=== PATIENT | male | born 1970 | race Caucasian/White ===

== ENCOUNTER 2023-08-25 10:04 | Emergency (ER) | payer OTHER, SELFPAY ==
[2023-08-25 10:06] VITALS: BP 180/95
--- NOTE | 2023-08-25 11:02 | ED.MUSCINJ ---
HPI-Injury
General
Chief Complaint: Musculo-Skeletal Complaint
Source: patient
Exam Limitations: none
Time Seen by Provider: 08/25/23 10:40
Travel History
Have you had any contact with someone who has COVID-19?: No
Do you have any symptoms of coronavirus? Fever > 100 degrees, chills, cough, shortness of breath, sore throat, loss of taste or smell, muscle aches, or headache?: No
History of Present Illness-Injury
Initial Injury comments:
53-year-old male presents with atraumatic pain to the left thigh starting last night upon standing from the couch. No chest pain or shortness of breath. History of Left hip replacement 8 months ago. No fever. No other complaints at this time.
Past History
Past History
ED Past Medical History: Hypercholesterolemia
ED Past Surgical History: Tonsilectomy
Social History
Tobacco: Non-smoker
Alcohol: Occasional
Personal:
Living: with family
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
Family History
Family History: CAD
Phy Exam
Physical Exam
Physical Exam:
General: Well-appearing male no acute respiratory distress
HEENT: Normocephalic atraumatic
Heart: Regular rate and rhythm no murmurs lungs: Clear to auscultation bilaterally no wheezing
musculoskeletal exam: Left thigh not reproducibly tender. No deformity. Good range of motion.
Extremities: No cyanosis or edema vascular: 2+ dorsalis pedis pulse left foot
Injury Course
Orders/Labs/Results
Orders:
Orders
08/25/23 11:02
Venous Doppler Lwr Ext Left [US Periph Venous LOWER Ext LT] Urgent
Comment:
Reason For Exam: pain
08/25/23 12:02
Asenapine Sublingual [Saphris] 10 mg SL NOW STA
MDM/Problems Addressed
Differential Diagnosis Includes:
Atraumatic left thigh pain. Will order ultrasound to evaluate for DVT. No signs of cellulitis. Question also muscular strain
*Critical Care Note
Total Time (30-74mins, 75-104mins- exclusive of procedures): Not Applicable
Update Note
Update Note:
Ultrasound negative for DVT. Reassured patient. Suspect possible muscular strain. Recommended ibuprofen if needed for pain stable for discharge with follow-up
ED Attending Note
-
Portions of this chart may have been created with voice recognition software.� Occasional wrong word or��sound alike� substitutions may have occurred due to the inherent limitations of voice recognition software.
Discharge Plan
Departure
Patient Disposition: Home (Routine Discharge)
Date of Disposition: 08/25/23
Time of Disposition: 13:00
Patient with high blood pressure during this ER visit?: No
Discharge Problem:
Leg pain
Instructions: Muscle Strain (DC)
Prescriptions:
No Action
docosahexaenoic acid-epa 1 CAP capsule
4 cap PO DAILY
levofloxacin 500 MG tablet
500 mg PO DAILY 7 Days 0RF
oxycodone-acetaminophen 5 MG/325 MG tablet
1 tab PO Q4HPRN PRN (Reason: pain) Qty: 12 0RF
Referrals:
Lorin Pozo MD [Family Provider] -
Activity Restrictions/Additional Instructions:
Rest. Use ibuprofen if needed for pain. Return for worsening symptoms otherwise follow-up with family doctor
Interventions
Interventions:
*Risk Screen - Suicide Last Done: 08/25/23 10:35
*General Assessment Last Done: 08/25/23 10:35
*Neglect/Abuse Screening Last Done: 08/25/23 10:35
*ED COVID-19 Vaccine History Last Done: 08/25/23 10:35
ED-Musculoskeletal Assessment Last Done: 08/25/23 10:35
[2023-08-25 12:23] VITALS: BP 130/81
== END 2023-08-25 13:05 | disposition home or self-care (01) ==
LOC: EMR 10:04
PROVIDERS: EMERGENCY PHYSICIAN Emergency Medicine; FAMILY PHYSICIAN Family Medicine
DX: M79.652 Pain in left thigh (principal); E78.00 Pure hypercholesterolemia, unspecified; Z82.49 Family history of ischemic heart disease and other diseases of the circulatory system; Z96.642 Presence of left artificial hip joint
CPT/HCPCS: 99284; 93971

== ENCOUNTER 2024-04-04 08:40 | Emergency (ER) | payer OTHER, SELFPAY ==
[2024-04-04 08:42] VITALS: BP 164/96
[2024-04-04 08:57] LABS: % Basophils 0.5 % (0-2); % Eosinophils 1.4 % (0-6); % Immature Granulocytes 0.6 % (0-0.5); % Lymphocytes 21.5 % (20.5-51.1); % Monocytes 8.4 % (1.7-9.3); % Neutrophils 67.6 % (42.2-75.2); Absolute Eosinophils 0.1 10^3/uL (0-0.7); Absolute Immature Granulocytes 0.1 10^3/uL (0-0.05); Absolute Lymphocytes 1.8 10^3/uL (1.2-3.4); Absolute Monocytes 0.7 10^3/uL (0.1-0.6); Absolute Neutrophils 5.6 10^3/uL (1.4-6.5); Hematocrit 40.8 % (39.0-52.0); Hemoglobin 13.7 g/dL (13.0-18.0); Mean Corp Hgb Conc. 33.6 g/dL (33.0-37.0); Mean Corpuscular Hgb 30.9 pg (27.0-31.0); Mean Corpuscular Volume 92.1 fL (80.0-94.0); Mean Platelet Volume 9.2 fL (7.4-10.4); Nucleated Red Blood Cells % 0 % (-); Platelet Count 299 10^3/uL (130-400); Red Blood Cell Count 4.43 10^6/uL (4.70-6.10); Red Cell Dist. Width 13.9 % (11.5-14.5); White Blood Cell Count 8.3 10^3/uL (4.8-10.8)
[2024-04-04 09:09] LABS: ALT (SGPT) 31 U/L (0-50); AST (SGOT) 27 U/L (17-59); Alkaline Phosphatase 87 U/L (38-126); Blood Urea Nitrogen 24 mg/dl (9-20); Calcium 9.9 mg/dl (8.4-10.2); Carbon Dioxide 28 mmol/L (22-30); Chloride 101 mmol/L (98-107); Glucose 140 mg/dl (70-99); Potassium 4.6 mmol/L (3.5-5.1); Sodium 141 mmol/L (135-145); Total Bilirubin 0.7 mg/dl (0.2-1.3); Total Protein 7.4 g/dl (6.3-8.2); eGFR > 60.00
[2024-04-04 09:27] VITALS: BMI 36.2
[2024-04-04] MEDS: NSS 1000 IV (09:28)
--- NOTE | 2024-04-04 09:36 | ED.GENMED ---
History of Present Illness
General
Chief Complaint: Dizziness
Source: patient
Time Seen by Provider: 04/04/24 09:09
History of Present Illness
History of Present Illness:
53-year-old male presents to the emergency room complaining of 1 weeks of having a sensation of dizziness. Patient feels the symptoms with changes of position primarily. He does not describe this as a dramatic sense of spinning but rather a weird
sense of movement associate with some fullness right side of his head. No nausea, vomiting, diarrhea. No focal weakness numbness or tingling. Patient does not have a headache per se. No recent illness. He has been experiencing some tenderness
particular on the right.
Past History
Past History
ED Past Medical History: Hypercholesterolemia
ED Past Surgical History: Tonsilectomy
Social History
Tobacco: Non-smoker
Alcohol: Occasional
Personal:
Living: with family
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
Family History
Family History: CAD
Phy Exam
Physical Exam
Physical Exam:
General: Awake, Alert, Oriented X3. No acute distress.
Vitals: unremarkable
Head: Atraumatic
Eyes: Pupils equal, EOMI, no nystagmus
Throat: Airway intact, no exudates
Neck: Trachea midline
Lungs: Clear and equal b/l
Heart: Regular rate, no murmurs
Abd: Soft, Nontender, No pulsatile mass
Neuro: Cranial nerves intact, muscle strength equal bilaterally, cerebellar exam normal. Patient can ambulate without difficulty
Skin: Warm, dry, no rash
Extremities: pulses equal b/l, no edema
Course
Orders/Labs/Results
Orders:
Orders
04/04/24 08:46
Electrocardiogram (*1) Urgent
Reason for Study: Vertigo / Dizzy
EKG- Treatment ONCE
04/04/24 08:49
Complete Blood Count/With Diff Urgent
Comprehensive Metabolic Panel Urgent
04/04/24 09:20
0.9% Sodium Chloride 1000 ml [Nss] 1,000 ml IV BOLUS
04/04/24 11:45
Meclizine [Antivert] 25 mg PO NOW STA
Abnormal Lab Results
04/04/24
08:49
RBC 4.43 L 10^6/uL
(4.70-6.10)
Abs Immat Gran (auto) 0.1 H 10^3/uL
(0-0.05)
Absolute Monos (auto) 0.7 H 10^3/uL
(0.1-0.6)
Immature Gran % 0.6 H %
(0-0.5)
BUN 24 H mg/dl
(9-20)
Glucose 140 H mg/dl
(70-99)
04/04/24 08:49
04/04/24 08:49
Vital Signs
Initial and Last Documented VS:
Initial Vital Signs
Temp Pulse Resp BP Pulse Ox
98.1 F 98 16 164/96 98
04/04/24 08:42 04/04/24 08:42 04/04/24 08:42 04/04/24 08:42 04/04/24 08:42
Last Documented Vital Signs
Temp Pulse Resp BP Pulse Ox
98.1 F 84 16 123/78 94
04/04/24 08:42 04/04/24 10:02 04/04/24 10:02 04/04/24 12:24 04/04/24 10:02
MDM/Problems Addressed
Differential Diagnosis Includes:
BPPV, labyrinthitis, M�ni�re's disease
MDM/Problems Addressed:
Patient presents with dizziness. Symptoms or not exclusively present with head movement. His Hallpike's maneuver does not show distinct worsening on 1 side or the other. Neurologic exam is completely intact. Suspect labyrinthitis. Will treat
with Antivert. Have him follow-up with ENT.
Chronic conditions affecting care: HTN
*Pulse Oximetry
Patient hypoxic: no
*EKG
Interpreted by ED Provider?: Yes
Rate: normal
Rhythm: sinus
Interval: normal interval
QRS Pattern: left vent hypertrophy
Ischemia: no ischemia
*Vending Machine Filler Interpretation
Rate: normal
Interpretation: normal
Rhythm: sinus
*Critical Care Note
Total Time (30-74mins, 75-104mins- exclusive of procedures): Not Applicable
ED Attending Note
-
Portions of this chart may have been created with voice recognition software.� Occasional wrong word or��sound alike� substitutions may have occurred due to the inherent limitations of voice recognition software.
Discharge Plan
Departure
Patient Disposition: Home (Routine Discharge)
Date of Disposition: 04/04/24
Time of Disposition: 11:46
Patient with high blood pressure during this ER visit?: No
Condition: Good
Discharge Problem:
Vertigo
Instructions: Vertigo (a Type of Dizziness) (DC)
Prescriptions:
No Action
docosahexaenoic acid-epa 1 CAP capsule
4 cap PO DAILY
levofloxacin 500 MG tablet
500 mg PO DAILY 7 Days 0RF
oxycodone-acetaminophen 5 MG/325 MG tablet
1 tab PO Q4HPRN PRN (Reason: pain) Qty: 12 0RF
Referrals:
Lorin Pozo MD [Family Provider] -
Anant Benitez MD [Active] -
Activity Restrictions/Additional Instructions:
I believe that your symptoms are from irritation of the inner ear. This may be due to your recent virus or other causes. I believe you should contact the ears nose and throat doctor, Dr. Benitez, and make an appointment for further evaluation. In
the meantime you can take meclizine 25 mg every 8 hours as needed for symptoms. Return if you develop any weakness, numbness or feel like you are getting worse in any way.
Interventions
Interventions:
*Risk Screen - Suicide Last Done: 04/04/24 08:44
*General Assessment Last Done: 04/04/24 09:43
*Neglect/Abuse Screening Last Done: 04/04/24 08:44
ED- Fall Risk Assessment Last Done: 04/04/24 11:50
*ED COVID-19 Vaccine History Last Done: 04/04/24 11:50
*Nursing Disposition Last Done: 04/04/24 12:24
ED- Neurological Assessment Last Done: 04/04/24 09:43
ED- Cardiac Assessment Last Done: 04/04/24 12:25
ED Swallowing Screen Last Done: 04/04/24 11:50
Discharge Date and Time
Discharge Date/Time: 04/04/24 12:15
Print Language: ICELANDIC
[2024-04-04 10:02] VITALS: BP 126/80
[2024-04-04] MEDS: ANTIVERT 25 MG PO (12:04)
[2024-04-04 12:24] VITALS: BP 123/78
== END 2024-04-04 12:15 | disposition home or self-care (01) ==
LOC: EMR 08:40
PROVIDERS: Emergency Medicine; EMERGENCY PHYSICIAN Emergency Medicine; FAMILY PHYSICIAN Family Medicine
DX: R42 Dizziness and giddiness (principal); E78.00 Pure hypercholesterolemia, unspecified; I10 Essential (primary) hypertension; Z82.49 Family history of ischemic heart disease and other diseases of the circulatory system
CPT/HCPCS: 99283; 96360; 80053; 85025; 93005

== ENCOUNTER 2024-11-29 13:34 | Inpatient (IN) | payer OTHER, SELFPAY ==
[2024-11-29] VITALS (13 sets, daily range): BP systolic 115–149; BP diastolic 71–87; PULSE 70; O2SAT 97; BMI 36.1; BMI 37.0
[2024-11-29 08:08] LABS: % Basophils 0.4 % (0-2); % Eosinophils 1.5 % (0-6); % Immature Granulocytes 0.7 % (0-0.5); % Lymphocytes 32.5 % (20.5-51.1); % Monocytes 8.4 % (1.7-9.3); % Neutrophils 56.5 % (42.2-75.2); Absolute Eosinophils 0.2 10^3/uL (0-0.7); Absolute Immature Granulocytes 0.1 10^3/uL (0-0.05); Absolute Lymphocytes 3.6 10^3/uL (1.2-3.4); Absolute Monocytes 0.9 10^3/uL (0.1-0.6); Absolute Neutrophils 6.3 10^3/uL (1.4-6.5); Hemoglobin 13.2 g/dL (13.0-18.0); Mean Corp Hgb Conc. 33.8 g/dL (33.0-37.0); Mean Corpuscular Hgb 30.7 pg (27.0-31.0); Mean Corpuscular Volume 90.7 fL (80.0-94.0); Mean Platelet Volume 9.1 fL (7.4-10.4); Nucleated Red Blood Cells % 0 % (-); Platelet Count 321 10^3/uL (130-400); Red Cell Dist. Width 13.8 % (11.5-14.5); White Blood Cell Count 11.1 10^3/uL (4.8-10.8)
--- NOTE | 2024-11-29 08:14 | ED.GENMED ---
History of Present Illness
General
Chief Complaint: Dizziness
Source: patient
Exam Limitations: none
Time Seen by Provider: 11/29/24 08:02
History of Present Illness
History of Present Illness:
54yoM with a history of hypertension, hyperlipidemia, and obesity presenting for evaluation of dizziness. Patient was on a walk this morning when he suddenly became dizzy about 30 minutes ago. He states the room feels like it is spinning and he
was off balance. He was unable to ambulate due to his symptoms and a passerby transported him to the ED. Patient is diaphoretic on arrival. He reports nausea but denies any vomiting. Symptoms are worse with head movement, particularly if he
moves his head to the left. He denies any headache, visual changes, weakness, paresthesias, chest pain, shortness of breath, ear pain, tinnitus, hearing loss. No recent illness. Of note, patient was seen in the ED in March 2020 for for
vertigo. He states this episode is much more severe.
If applicable-neuro sx onset
Onset of symptoms known: Yes
Date of onset of symptoms: 11/29/24
Time of onset of symptoms: 07:30
Past History
Past History
ED Past Medical History: Hypercholesterolemia
ED Past Surgical History: Tonsilectomy
Social History
Tobacco: Non-smoker
Alcohol: Occasional
Personal:
Living: with family
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
Family History
Family History: CAD
Phy Exam
Physical Exam
Physical Exam:
Diaphoretic, appears uncomfortable
General Physical Exam
General Presentation: mild distress
General age: appears stated age
General Skin: warm and diaphoretic
General Habitus: normal
General Mental: alert
ENT Exam
ENT Exam: TM's normal and normocephalic
Eye Exam
Eye Exam: PERRL, conjunctiva normal, visual camp normal and other (Resting horizontal nystagmus noted. PERRL. Visual camp intact.)
Cardiovascular Exam
Cardiovascular Exam: regular rate/rhythm
Pulmonary Exam
Pulmonary Exam: lungs clear, no respiratory distress, no rales, no crackles, no rhonchi and no wheezing
Neurological Exam
Neurological Exam: alert, no motor deficits, no sensory deficits, speech normal and other (+Horizontal nystagmus. Negative test of skew. Attempted head impulse test but patient closed his eyes and became severely symptomatic so test was aborted.
Mild dysmetria in L arm with finger to nose. Normal heel to monroe testing. 5/5 strength in all extremities and gross sensation intact.)
Skin Exam
Skin Exam: normal color and diaphoresis
Psychiatric Exam
Psychiatric Exam: normal mood/affect
Scores
NIH Stroke Score
Level of Consciousness: 0 - Alert
LOC Questions: 0-Answers both correctly
LOC Commands: 0-Performs both correctly
Best Horizontal Gaze: 0-Normal
Visual Camp: 0=Normal, no visual loss
Facial Palsy: 0=Normal, symmetrical
Motor - Right Arm: 0=No drift 10 seconds
Motor - Left Arm: 0=No drift 10 seconds
Motor - Right Le-No drift 5 seconds
Motor - Left Le-No drift 5 seconds
Limb Ataxia: 0-Absent
Sensation: 0-Normal
Best Language: 0-No aphasia
Dysarthria: 0-Normal
Extinction and Inattention: 0-No abnormality
Total Score:: 0
Course
Orders/Labs/Results
Orders:
Orders
11/29/24 07:38
EKG [Electrocardiogram (*1)] Urgent
Reason for Study: Vertigo / Dizzy
EKG- Treatment ONCE
11/29/24 08:00
Electrocardiogram (*1) Urgent
Reason for Study: Other
Other Reason for Exam: Possible Stroke
Cardiac Monitoring- Treatment ONCE
IV Insert/Care/Rem.- Treatment PRN
Vital Signs As Directed
Frequency: Other
11/29/24 08:01
EKG- Treatment ONCE
11/29/24 08:02
Complete Blood Count/With Diff Urgent
Comprehensive Metabolic Panel Urgent
Troponin I Urgent
11/29/24 08:12
CT HEAD STROKE ALERT W/o Cont Urgent
Comment:
Reason For Exam: dizziness
CT HEAD/NECK ANG STROKE ALERT Urgent
Comment:
Reason For Exam: dizziness
11/29/24 08:13
0.9% Sodium Chloride 1000 ml [Nss] 1,000 ml IV BOLUS
Ondansetron HCl [Zofran] 4 mg PO NOW STA
11/29/24 08:32
MethylPREDNISolone PF [Solu-Medrol Pf] 125 mg IV NOW STA
11/29/24 08:39
Meclizine [Antivert] 25 mg PO NOW STA
11/29/24 08:43
Pt Eval And Treat Urgent
Treatment: vestibular eval
Activity Level: Out of Bed- Ad Shanell
11/29/24 09:27
diazePAM [Valium Injection] 5 mg IV NOW STA
Abnormal Lab Results
11/29/24
08:02
WBC 11.1 H 10^3/uL
(4.8-10.8)
RBC 4.30 L 10^6/uL
(4.70-6.10)
Abs Immat Gran (auto) 0.1 H 10^3/uL
(0-0.05)
Absolute Lymphs (auto) 3.6 H 10^3/uL
(1.2-3.4)
Absolute Monos (auto) 0.9 H 10^3/uL
(0.1-0.6)
Immature Gran % 0.7 H %
(0-0.5)
Glucose 148 H mg/dl
(70-99)
11/29/24 08:02
11/29/24 08:02
Vital Signs
Initial and Last Documented VS:
Initial Vital Signs
Temp Pulse Resp BP Pulse Ox
98.3 F 97 16 149/87 98
11/29/24 07:39 11/29/24 07:39 11/29/24 07:39 11/29/24 07:39 11/29/24 07:39
Last Documented Vital Signs
Temp Pulse Resp BP Pulse Ox
98.3 F 65 18 121/78 94
11/29/24 07:39 11/29/24 10:00 11/29/24 10:00 11/29/24 10:00 11/29/24 10:00
MDM/Problems Addressed
Differential Diagnosis Includes:
54yoM here with dizziness. On a walk this morning when he suddenly felt the room was spinning/imbalance. Associated with nausea. Diaphoretic on initial exam. Horizontal nystagmus noted. Head impulse test attempted but patient became severely
symptomatic so this was aborted. There is questionable mild dysmetria with L finger to nose testing. Differential diagnosis includes but is not limited to: BPPV, vestibular neuronitis, labyrinthitis, posterior CVA
Initial ED plan: Given risk factors and inability to ambulate, stroke alert initiated. Cardiac labs, EKG, and CT/CTA head/neck ordered.
*EKG
Interpreted by ED Provider?: Yes
EKG Intrepretation Date: 11/29/24
Heart Rate: 88
Rate: normal
Rhythm: sinus
[place]: left axis deviation
Interval: normal interval
QRS Pattern: normal QRS
Ischemia: no ischemia
*Critical Care Note
Total Time (30-74mins, 75-104mins- exclusive of procedures): Not Applicable
Update Note
Update Note:
0842: Patient evaluated by neurologist Dr. Palacios. Neurology feels presentation is consistent with vestibular neuronitis. No indication for TNK. 125mg IV Solumedrol ordered.
CT and CTA negative for acute findings. Patient given Zofran, meclizine, and IV Valium without any improvement. Patient continues to be unable to ambulate. Will admit for further management.
ED Attending Note
-
Portions of this chart may have been created with voice recognition software.� Occasional wrong word or��sound alike� substitutions may have occurred due to the inherent limitations of voice recognition software.
Discharge Plan
Departure
Patient Disposition: Admit
Date of Disposition: 11/29/24
Time of Disposition: 10:37
Presentation/result/management discussed w/ accepting MD/DO: Hospitalist
Discharge Problem:
Vertigo
Prescriptions:
No Action
rosuvastatin 5 mg Tablet
5 mg PO DAILY
enalapril maleate 20 mg Tablet
20 mg PO DAILY
Referrals:
Lorin Pozo MD [Family Provider] -
Interventions
Interventions:
*Risk Screen - Suicide Last Done: 11/29/24 07:39
*Neglect/Abuse Screening Last Done: 11/29/24 07:39
*ED- Fall Risk Assessment Last Done: 11/29/24 07:58
*ED COVID-19 Vaccine History Last Done: 11/29/24 07:58
ED- Neurological Assessment Last Done: 11/29/24 07:58
Discharge Date and Time
Print Language: VENEZUELAN
[2024-11-29 08:29] LABS: ALT (SGPT) 33 U/L (0-50); AST (SGOT) 26 U/L (17-59); Albumin 4.4 g/dl (3.5-5.0); Alkaline Phosphatase 99 U/L (38-126); Blood Urea Nitrogen 20 mg/dl (9-20); Calcium 9.7 mg/dl (8.4-10.2); Carbon Dioxide 25 mmol/L (22-30); Chloride 107 mmol/L (98-107); Estimated Creatinine Clearance 96 ml/min; Glucose 148 mg/dl (70-99); Potassium 4.2 mmol/L (3.5-5.1); Sodium 139 mmol/L (135-145); Total Bilirubin 0.8 mg/dl (0.2-1.3); eGFR > 60.00
[2024-11-29 08:31] LABS: Troponin I < 0.012 ng/ml
[2024-11-29] MEDS: ANTIVERT 25 MG PO ×2 (08:49→20:51)
[2024-11-29] MEDS: ZOFRAN 4 MG PO (08:49)
[2024-11-29] MEDS: NSS 1000 IV ×2 (08:49→20:48)
[2024-11-29] MEDS: SOLU-MEDROL PF 125 MG IV (09:04)
[2024-11-29] MEDS: VALIUM INJECTION 5 MG IV (09:35)
--- NOTE | 2024-11-29 10:24 | CON.NEURO ---
Neuro Assessment/Plan
Assessment
Vestibular neuritis left ear (constant right beating nystagmus independent of gaze)
not a stroke
Plan
Solumedrol 125
Prednisone 50 x4 more days
Consultation
Order
Date of Consultation: 11/29/24
Requesting Provider: Karla Yanes
Reason for Consult: Stroke alert
Subjective/Objective
Subjective Data
Date of Service: November 29, 2024
Seen this morning during stroke alert 8:18 am.
he is a 54 year old man, this morning he was out for a run and developed sudden onset vertigo room spinning. he held onto a stop sign and had a neighbor bring him to the ED. symptoms began ~30 minutes prior to evaluation.
no vision loss, double vision, tinnitus, hearing loss, weakness, or numbness
Objective Data
Vital Signs
Temp Pulse Resp BP Pulse Ox
36.8 C 65 18 121/78 94
11/29/24 07:39 11/29/24 10:00 11/29/24 10:00 11/29/24 10:00 11/29/24 10:00
Lab Results
11/29/24 08:02
11/29/24 08:02
Sodium 139 mmol/L (135-145) 11/29/24 08:02
Potassium 4.2 mmol/L (3.5-5.1) 11/29/24 08:02
BUN 20 mg/dl (9-20) 11/29/24 08:02
Glucose 148 mg/dl (70-99) H 11/29/24 08:02
Calcium 9.7 mg/dl (8.4-10.2) 11/29/24 08:02
Patient Allergies
No Known Allergies Allergy (Verified 04/04/24 08:44)
Physical Exam
-
AAOx3, speech clear, language intact
VFF, EOMI, constant RIGHT beating nystagmus independent of gaze direction
full strength b/l UE/LE
sensation intact touch/temp
Medications
-
Home Medications
�Medication �Instructions �Recorded
enalapril maleate 20 mg tablet 20 mg PO DAILY 11/29/24
rosuvastatin 5 mg tablet 5 mg PO DAILY 11/29/24
--- NOTE | 2024-11-29 12:40 | HPS.HSE ---
Family Physician
-
Family Physician: Lorin Pozo
Chief Complaint
-
dizziness
History of Present Illness
HPI
54M Obese Non smoker HX HLD, HTN resenting for evaluation of dizziness.
- Onset of symptoms known: Yes
- Date of onset of symptoms: 11/29/24
- Time of onset of symptoms: 07:30
- while the morning walk, he suddenly bfelt dizzy about 30 minutes ago.
- the room feels like it is spinning and he was off balance.
- He was unable to ambulate due to his symptoms and a passerby transported him to the ED.
- diaphoretic on arrival.
- nausea but denies any vomiting.
- Symptoms are worse with head movement, particularly if he moves his head to the left.
- No recent illness.
Of note, patient was seen in the ED in March 2020 for for vertigo. He states this episode is much more severe.
ROS:
denies any headache, visual changes, weakness, paresthesias, chest pain, shortness of breath, ear pain, tinnitus, hearing loss.
ER NIH stroke score = 0
ER [place]
IV Zofran
NS 1000cc
IV Methylprednisone 125mg
PO Meclizine
IV Diazepam 5mg
Medical History
Past Medical History
Past Medical History: Reports HTN, Hypercholesterolemia and Other (vertigo in Mar 2020 )
Past Surgical History: Reports Tonsilectomy
Social History
Tobacco: Non-smoker
Alcohol: None
Family History
Family History: Not pertinent
Allergies / Home Medications
Allergies reflects when Allergies were last updated in [facility].
Home Medications with original date entered in [facility]
Allergy/Medication List:
Allergies
Allergy/AdvReac Type Severity Reaction Status Date / Time
No Known Allergies Allergy Verified 04/04/24 08:44
Home Medications
enalapril maleate 20 mg tablet 20 mg PO DAILY 11/29/24
rosuvastatin 5 mg tablet 5 mg PO DAILY 11/29/24
Review of Systems
-
Constitutional: Reports No Symptoms
EENT: Reports No Symptoms
Respiratory: Reports No Symptoms
Cardiac: Reports No Symptoms
Abdomen/GI: Reports No Symptoms
: Reports No Symptoms
Musculoskeletal: Reports No Symptoms
Skin: Reports No Symptoms
Neurological: Reports Dizzy; Denies Headache, Weakness or Numbness
Endocrine: Reports No Symptoms
Hematologic/Lymphatic: Reports No Symptoms
Psych: Reports No Symptoms
Physical Exam
Vital Signs
Vital Signs
Temp Pulse Resp BP Pulse Ox
98.3 F 64 16 137/86 98
11/29/24 07:39 11/29/24 12:00 11/29/24 12:06 11/29/24 12:00 11/29/24 12:00
Physical Exam
General: Well Developed, Well Nourished and No Apparent Distress
HEENT: NormoCephalic, Moist mucous membranes and Atraumatic
Respiratory: Clear
Cardiac: S1/S2 and Regular Rhythm; No Murmur or Rub
GI: Soft, Non Tender, Non Distended and Normal Bowel Sounds; No Organomegaly
Rectal: Deferred by Provider
Musculoskeletal: No Clubbing, No Cyanosis and No Edema
Skin: No Rash
Neuro: AO x 3, Nonfocal/grossly intact and Other (resolved Nystagmus upon my exam)
Psych: Calm
Laboratory Results
-
11/29/24 08:02
11/29/24 08:02
Laboratory Results
Total Bilirubin 0.8 mg/dl (0.2-1.3) 11/29/24 08:02
AST 26 U/L (17-59) 11/29/24 08:02
ALT 33 U/L (0-50) 11/29/24 08:02
Alkaline Phosphatase 99 U/L (38-126) 11/29/24 08:02
Troponin I < 0.012 ng/ml 11/29/24 08:02
Data Reviewed
-
CT Scan: Report Reviewed by me
Lab Data: Labs Reviewed by me
Old Records: Reviewed
Impression/Plan
-
Vital Signs
Temp Pulse Resp BP Pulse Ox
98.3 F 64 16 137/86 98
11/29/24 07:39 11/29/24 12:00 11/29/24 12:06 11/29/24 12:00 11/29/24 12:00
Abnormal Lab
11/29/24
08:02
WBC 11.1 H
RBC 4.30 L
Abs Immat Gran (auto) 0.1 H
Absolute Lymphs (auto) 3.6 H
Absolute Monos (auto) 0.9 H
Immature Gran % 0.7 H
Glucose 148 H
EKG
NORMAL SINUS RHYTHM
LEFT AXIS DEVIATION
MINIMAL VOLTAGE CRITERIA FOR LVH, MAY BE NORMAL VARIANT ( R in aVL )
ABNORMAL ECG
WHEN COMPARED WITH ECG OF 04-APR-2024 08:46,
NO SIGNIFICANT CHANGE WAS FOUND
CT HEAD STROKE ALERT W/o Cont
No acute intracranial abnormality noted.
Head and neck CTA without and with contrast
No significant vascular occlusion, aneurysm or dissection.
NO PRIOR hospitalist admission:
ASSESSMENT & PLAN
Sudden onset of Vertigo
- DDX: likely peripheral origin > central origin ) Diff etiology Vestibular neuritis per Neuro
- resolved Nystagmus upon my exam
- associated acute gait dysfunction
- Normotensive
- Normal sinus rhythm
- NEG HCT
- NEG H & N CTA
- Supportive care: IVF, Meclizine PRN, IV Zofran PRN
Benign HTN
- c/w SKIDDER RUNNER Enalapril
HLD
- c/w Rosuvastatin
DVT Px: LMWH
Code: Full
IP TLM
[2024-11-29] MEDS: TYLENOL 650 MG PO (13:27)
[2024-11-29] MEDS: ZOFRAN 4 MG IV (13:31)
--- NOTE | 2024-11-29 18:50 | PTCARENOTE ---
Patient received at 1825 , awake alert oriented. Vital signs and weight completed . No distress at present.
[2024-11-29] MEDS: LOVENOX 40 MG SC (20:47)
[2024-11-29] MEDS: VASOTEC 20 MG PO (21:17)
[2024-11-29] MEDS: CRESTOR 5 MG PO (21:17)
[2024-11-29 21:38] LABS: Glucose - Point of Care 191 mg/dl (70-99)
[2024-11-30 04:40] VITALS: BP 114/75
[2024-11-30 07:58] VITALS: BP 119/77
[2024-11-30 08:22] LABS: Hematocrit 37.1 % (39.0-52.0); Hemoglobin 12.2 g/dL (13.0-18.0); Mean Corp Hgb Conc. 32.9 g/dL (33.0-37.0); Mean Corpuscular Hgb 30.8 pg (27.0-31.0); Mean Corpuscular Volume 93.7 fL (80.0-94.0); Mean Platelet Volume 9.4 fL (7.4-10.4); Platelet Count 319 10^3/uL (130-400); Red Blood Cell Count 3.96 10^6/uL (4.70-6.10); Red Cell Dist. Width 13.8 % (11.5-14.5); White Blood Cell Count 14.4 10^3/uL (4.8-10.8)
[2024-11-30 09:03] LABS: Blood Urea Nitrogen 17 mg/dl (9-20); Carbon Dioxide 25 mmol/L (22-30); Chloride 109 mmol/L (98-107); Estimated Creatinine Clearance 108 ml/min; Glucose 105 mg/dl (70-99); Potassium 4.7 mmol/L (3.5-5.1); Sodium 141 mmol/L (135-145); eGFR > 60.00
[2024-11-30] MEDS: VASOTEC 20 MG PO ×2 (09:25→20:14)
[2024-11-30] MEDS: ANTIVERT 12.5 MG PO ×3 (09:28→21:23)
[2024-11-30] MEDS: NSS 1000 IV ×2 (09:28→21:23)
--- NOTE | 2024-11-30 10:36 | W.PN.HOSP.TC ---
Today's Communication/Plan
-
MRI brain
c/ w steroid
Add ATC Meclizine
PT / OT
Assessment / Plan
Assessment / Plan
Physical Exam
General: Well Developed, Well Nourished and No Apparent Distress
HEENT: NormoCephalic, Moist mucous membranes and Atraumatic
Respiratory: Clear
Cardiac: S1/S2 and Regular Rhythm; No Murmur or Rub
GI: Soft, Non Tender, Non Distended and Normal Bowel Sounds; No Organomegaly
Rectal: Deferred by Provider
Musculoskeletal: No Clubbing, No Cyanosis and No Edema
Skin: No Rash
Neuro: AO x 3, Nonfocal/grossly intact and Other (resolved Nystagmus upon my exam)
Psych: Calm
Sudden onset of Vertigo
- DDX: likely peripheral origin > central origin ) Diff etiology Vestibular neuritis per Neuro
- Right sided Nystagmus upon my exam
- associated acute gait dysfunction
- Normotensive
- Normal sinus rhythm
- NEG HCT
Negative Troponin
No fevers, no headache, no recent cold like symptoms. No tinnitus or hearing problems
- NEG H & N CTA
_ steroid given
- Will check MRI brain w/ wo contrast
- Supportive care: IVF, Meclizine PRN, IV Zofran PRN
# Leukocytosis, reactive
Benign HTN
- c/w EMBEDDED SYSTEMS ENGINEER Enalapril
HLD
- c/w Rosuvastatin
Total time spent to see the patient, examine the patient, review data and lab results, discuss treatment plan with patient, nursing staff around 55 minutes.
Anticipated Discharge: Within 24 hours
Subjective/Interval History
-
Date of Service: November 30, 2024
less dizzy and imbalance
No headache
No visual problems
No focal weakness or numbness
Objective Data
-
Labs:
Laboratory Results
11/30/24
06:21
WBC 14.4 H
Hgb 12.2 L
Hct 37.1 L
Plt Count 319
Sodium 141
Potassium 4.7
Chloride 109 H
Carbon Dioxide 25
BUN 17
Creatinine 0.9
Glucose 105 H
Calcium 9.0
Vital Signs:
Vital Signs
Temp Pulse Resp BP Pulse Ox
98 F 63 18 119/77 98
11/30/24 07:58 11/30/24 07:58 11/30/24 07:58 11/30/24 07:58 11/30/24 07:58
I&O
11/29/24 11/30/24 12/01/24
06:59 06:59 06:59
Intake Total 770 / 770
Balance 770 / 770
--- NOTE | 2024-11-30 11:10 | CM ---
Patient seen bedside, initial assessment completed. Patient is a 54 year old, HX HLD, HTN presenting for evaluation of dizziness.
Patient resides w/ spouse and 2 adult sons in a [facility]- 3 steps to enter. Independent w/ ambulating, no device required. Independent w/ ADLs. No DME identified. No SNF hx, OP therapy and home PT in the past following hip surgery.
Address, point of contact and insurance verified
PCP: Lorin Pozo
Pharmacy: [facility]
Therapy assessed patient, rec OP vestibular therapy/rehab. Will cont to follow while in hospital
Plan: Home; OP therapy likely
[2024-11-30 11:15] VITALS: BP 111/65
[2024-11-30] MEDS: DELTASONE 50 MG PO (11:37)
[2024-11-30 15:50] VITALS: BP 111/70
[2024-11-30] MEDS: CRESTOR 5 MG PO (15:50)
[2024-11-30] MEDS: LOVENOX 40 MG SC (15:51)
--- NOTE | 2024-11-30 15:52 | W.PN.NEURO.1 ---
Today's Communication / Plan
-
Prednisone 50/day complete 5 days of steroids
Neuro Assessment/Plan
Assessment
Vestibular neuritis left ear (constant right beating nystagmus independent of gaze). improving
not a stroke
Plan
Solumedrol 125 given in ED
Prednisone 50 x4 more days
brain MRI rule out other cause
Subjective/Objective
Subjective Data
Date of Service: November 30, 2024
no vertigo at rest
still some vertigo off balance with ambulating with walker
Objective Data
Vital Signs
Temp Pulse Resp BP Pulse Ox
36.9 C 91 16 111/70 96
11/30/24 15:50 11/30/24 15:50 11/30/24 15:50 11/30/24 15:50 11/30/24 15:50
Lab Results
11/30/24 06:21
11/30/24 06:21
Sodium 141 mmol/L (135-145) 11/30/24 06:21
Potassium 4.7 mmol/L (3.5-5.1) 11/30/24 06:21
BUN 17 mg/dl (9-20) 11/30/24 06:21
Glucose 105 mg/dl (70-99) H 11/30/24 06:21
Calcium 9.0 mg/dl (8.4-10.2) 11/30/24 06:21
Patient Allergies
No Known Allergies Allergy (Verified 04/04/24 08:44)
Physical Exam
-
AAOx3, speech clear, language intact
VFF, EOMI, constant RIGHT beating nystagmus independent of gaze direction - now subtle
full strength b/l UE/LE
sensation intact touch/temp
[2024-11-30 19:27] VITALS: BP 117/71
[2024-11-30 23:02] VITALS: BP 107/60
[2024-12-01 02:54] VITALS: BP 146/77
[2024-12-01 07:10] VITALS: BP 138/78
[2024-12-01] MEDS: ANTIVERT 12.5 MG PO (08:05)
[2024-12-01] MEDS: PROTONIX 40 MG PO (08:05)
[2024-12-01] MEDS: DELTASONE 50 MG PO (08:05)
[2024-12-01] MEDS: VASOTEC 20 MG PO (08:05)
--- NOTE | 2024-12-01 09:35 | W.PN.HOSP.TC ---
Today's Communication/Plan
-
DC likely today
Assessment / Plan
Assessment / Plan
Physical Exam
General: Well Developed, Well Nourished and No Apparent Distress
HEENT: NormoCephalic, Moist mucous membranes and Atraumatic
Respiratory: Clear
Cardiac: S1/S2 and Regular Rhythm; No Murmur or Rub
GI: Soft, Non Tender, Non Distended and Normal Bowel Sounds; No Organomegaly
Rectal: Deferred by Provider
Musculoskeletal: No Clubbing, No Cyanosis and No Edema
Skin: No Rash
Neuro: AO x 3, Nonfocal/grossly intact and Other (resolved Nystagmus upon my exam)
Psych: Calm
Sudden onset of Vertigo
- DDX: likely peripheral origin > central origin ) Diff etiology Vestibular neuritis per Neuro
- Right sided Nystagmus upon my exam
- associated acute gait dysfunction
- Normotensive
- Normal sinus rhythm
- NEG HCT
Negative Troponin
No fevers, no headache, no recent cold like symptoms. No tinnitus or hearing problems
- NEG H & N CTA
_ steroid given
- to f/w MRI brain w/ wo contrast
- Supportive care: IVF, Meclizine PRN, IV Zofran PRN
# Leukocytosis, reactive
Benign HTN
- c/w CLINICAL DENTAL TECHNICIAN Enalapril
HLD
- c/w Rosuvastatin
Total discharge time spent to see the patient, examine the patient, review data and lab results, discuss discharge plan with patient, nursing staff around 65 minutes.
Anticipated Discharge: Today
Subjective/Interval History
-
Date of Service: December 01, 2024
Not dizzy
No headache, blurred vision or chest pain
Normal gait and balance, feels ready to go home
Objective Data
-
Vital Signs:
Vital Signs
Temp Pulse Resp BP Pulse Ox
97.7 F 70 16 138/78 99
12/01/24 07:10 12/01/24 07:10 12/01/24 07:10 12/01/24 07:10 12/01/24 07:10
I&O
11/30/24 12/01/24 12/02/24
06:59 06:59 06:59
Intake Total 770 / 770 2640 / 2640
Balance 770 / 770 2640 / 2640
[2024-12-01 11:47] VITALS: PULSE 70; O2SAT 99
[2024-12-01 12:00] VITALS: BP 135/71
--- NOTE | 2024-12-01 13:04 | CM ---
Patient stable for d/c today. Therapy rec OP therapy for patient if vestibular symptoms continues
CM met w/ patient bedside, offered script for OP therapy. Patient shared he will see how he feels through the weekend and if he feels like he'll need OP therapy, he will see his PCP.
No CM needs identified at this time
Plan: Home, no needs
--- NOTE | 2024-12-01 13:34 | W.DCSUMMARY ---
Discharge Summary
Discharge Data
Date of Admission: 11/29/24
Date of Discharge: 12/01/24
-
Pending Results: No
Hospital Course
54 years old male presented to the hospital with dizziness and inability to walk without feeling of balance and spinning. Patient was diagnosed with vertigo, acute onset. He was evaluated by neurologist. Scan of the head including CT angio of the
head and neck did not show acute findings. Patient was diagnosed with acute vestibular neuritis. He was started on systemic dose of steroid with meclizine. He was admitted to the hospital. His symptoms started to improve. He had MRI of the
brain with and without contrast that did not show acute abnormalities. His symptoms significantly resolved. He denied headache, blurred vision, focal neurological numbness or weakness, urinary symptoms. He felt better with therapy and was able to
ambulate without dizziness. He remained hemodynamically stable was discharged home in a stable condition.
Discharge Plan
-
Patient Disposition: Home (Routine Discharge)
Discharge Diagnosis/Procedures: Acute Vestibular neuritis
You are seen by neurologist. You received steroid treatment.
Diet: As tolerated
Referrals:
Lorin Pozo MD [Family Provider] - in one to two weeks
Prescriptions:
New
meclizine 25 mg Tablet
25 mg PO Q8HPRN PRN (Reason: dizziness) Qty: 10 0RF
pantoprazole 40 mg Tablet,Delayed Release (Dr/Ec)
40 mg PO DAILY Qty: 7 0RF
prednisone 50 mg Tablet
50 mg PO DAILY Qty: 3 0RF
ondansetron HCl 4 mg tablet
4 mg PO Q8HPRN PRN (Reason: nausea and vomiting) Qty: 10 0RF
Continued
rosuvastatin 5 mg Tablet
5 mg PO QPM
enalapril maleate 20 mg Tablet
20 mg PO BID
Discharge Orders:
Discharge Patient (As Directed); Ordered 12/01/24
Ordered By: Zara Pringle
Discharge Date and Time
Discharge Date/Time: 12/01/24 13:17
Print Language: WELSH
== END 2024-12-01 13:17 | disposition home or self-care (01) | DRG 149 ==
LOC: 4 WEST ACU 13:34
PROVIDERS: Student in an Organized Health Care Education/Training Program; ADMITTING PHYSICIAN Internal Medicine; ATTENDING PHYSICIAN Internal Medicine; CONSULT PHYSICIAN Psychiatry & Neurology Clinical Neurophysiology; EMERGENCY PHYSICIAN Emergency Medicine; FAMILY PHYSICIAN Family Medicine
DX: H81.22 Vestibular neuronitis, left ear (principal); E66.9 Obesity, unspecified; Z68.37 Body mass index [BMI] 37.0-37.9, adult; E78.00 Pure hypercholesterolemia, unspecified; I10 Essential (primary) hypertension; H55.09 Other forms of nystagmus
CPT/HCPCS: 70450; 70496; 70498; 70553; 80048; 80053; 82962; 84484; 85025; 85027; 93005; 96361; 96374; 97116; 97530; 99285; A9575; Q9967

== ENCOUNTER → 2025-04-21 09:10 | Outpatient (REF) | payer OTHER, SELFPAY | LOC: RCS 09:10 | PROVIDERS: ATTENDING PHYSICIAN Family Medicine | DX: I10 Essential (primary) hypertension (principal); Z82.49 Family history of ischemic heart disease and other diseases of the circulatory system | CPT/HCPCS: 93306 ==